=== PATIENT | male | born 1995 | race Caucasian/White ===

== ENCOUNTER 2022-11-18 13:09 | Outpatient (CLI) | payer OTHER ==
[2022-11-18 19:02] VITALS: BP 116/68
--- NOTE | 2022-11-18 19:02 | SLEEP CARE CONSULTATION ---
Information from patient questionnaire entered by Tejal Bullock. I have reviewed and concur with the information entered by Tejal Bullock. This document represents the service I personally performed and the decisions made by me, Marisela Suárez MD, [facility]. History of Present Illness Service Date and Time: 11/18/2022 1309 Reason for Visit: New patient Chief Complaint: reports: Unrefreshed sleep, Snoring, Observed pauses in breathing, Fatigue Date of Onset: 4YRS Usual bedtime: 8PM Time it takes to fall asleep: 1-2HRS Snores at night: Yes Observed to quit breathing while asleep: Yes Sleeps alone due to snoring: No Number of times waking at night: 3-6 Reasons for waking at night: reports: Snoring, Pain, Other (COUGHING) Toss, Turn, or Twitch while sleeping: Yes Recalls having dreams: Yes Usually gets out of bed at: 5AM Feels refreshed in the morning: No Morning headache: No Sleepy or fatigued during the day: Yes Ever fallen asleep while driving: Yes Takes day naps: No Dreams during day naps: Yes Prior sleep studies: No Additional HPI information: I had the pleasure of seeing Mr. Blanchard today regarding the possibility of him having a sleep disorder. As you know, he is a 27-year-old gentleman who complains of loud snore, observed apneas, unrefreshed sleep, and persistent fatigue for the past 4 years. He goes to bed around 8 pm and it takes him 1 2 hours to fall asleep. He has been told that he snores loudly and irregularly at night. He has also been observed to stop breathing in his sleep. His can still sleep in the same bed but with earplugs. He can recall waking up on the average of 3 - 6 times during the night. Most of the time he wakes up because of pain, coughing, and his own snore. There is a lot of tossing and turning in his sleep. He has somniloquy (sleep talking) but not somnambulism (sleep walking). Generally, he can recall having dreams. In the morning he usually gets up out of the bed around 5 a.m. not feeling refreshed nor rested. He usually does not have a morning headache. During the day he complains of feeling sleepy and fatigued. His score on [place] Sleepiness Scale is 12 out of 24. He has fallen asleep while driving and has gone out of the lizzie. He usually does not take naps during the day. Upon falling asleep during the day he denies having vivid dreams. He has never had sleep paralysis, experienced cataplexy but reports symptoms of restless leg syndrome. He reports having impaired concentration during the day. - Parasomnia Symptoms Ever been unable to move upon waking from sleep: No Walks in sleep: No Talks in sleep: Yes Ever acted out dreams in sleep: Yes Ever felt weak in the knees when startled or emotional: No Bothered by creepy, crawly, restless sensations in legs: Yes Problems with memory or concentration: Yes Subjective Initial [place] Sleepiness Scale score: 15 () Past Medical History Past Medical History: reports: GERD, Attention deficit Social History The patient's occupation is a AM. Patient is and lives in . Have you smoked in the past 12 months: No Alcohol use: Yes Alcohol amount and frequency: 1-2 DRINKS 2-3 TIMES A MONTH Caffeine use: No Family History Family history of sleep disordered breathing: Yes Family Hx Sleep Apnea: Father: Snoring Allergies and Home Medications Known drug allergies: No Drug allergies reviewed: Yes Home medication list reviewed: Yes Review of Systems Cardiovascular: denies: high blood pressure, palpitations, chest pain, irregular heart rate or pulse, leg or foot swelling, have to sleep sitting up, other Respiratory: reports: shortness of breath, chronic cough Gastrointestinal: reports: heartburn, other (STOMACH ULCER) Urinary: denies: incontinence, frequency, urgency, impotence, other Neurological: reports: headaches Psychiatric: reports: Attention Deficit Hyperactivity Ear/Nose/Throat: reports: dry mouth/throat, wisdom teeth removed Endocrine: denies: thyroid disease, history of goiter, sluggishness, too hot or cold, excessive thirst, increased appetite, increased urination, unexplained weakness, other Musculoskeletal: reports: joint pain, neck pain, back pain, muscle pain or cramping Immunologic: denies: sneezing, rash, itching, allergies to food or environment, other Physical Exam Vital signs obtained and entered by: TEJAL Cornejo MA Blood Pressure: 116/68 (LEFT ARM) Cuff size: regular Heart Rate: 105 O2 Saturation: 99 Height: 5 ft 10 in Weight: 201 lb 3.2 oz Body Mass Index: 28.8 BMI Classification: Overweight Neck circumference: 15.75 Mood/affect: normal HEENT: No craniofacial malformation Nostrils: patent to airflow Turbinates: normal Septum: midline Mouth and throat: narrow oropharynx Soft palate: long Hard palate: normal Uvula: normal Uvula visualization: 50% Mallampati Class II Tongue: enlarged in size with teeth avalos on lateral edges Chin and jaw: normal size and position Neck: normal w/o lymphadenopathy or thyromegaly Heart: regular rate and rhythm Lungs: clear bilaterally Extremities: no edema or clubbing Neurologic: intact Impression and Plan IMPRESSION: 1. Obstructive Sleep Apnea-Hypopnea Syndrome, as suggested by history of loud and irregular snoring, observed cessation of breath while asleep, frequent awakenings during the night, unrefreshed sleep, cognitive impairment, and daytime hypersomnolence. Narrow oropharynx and obesity are common predisposing factors for obstructive sleep apnea-hypopnea syndrome. I recommend proceeding to polysomnography to confirm the diagnosis and to assess severity. If he has significant sleep disordered breathing, a manual CPAP titration study will also be performed to find the optimal treatment pressure. I informed the patient of what the sleep studies involve and after some discussion, he agreed to proceed. Plan: 1. Schedule polysomnography + manual CPAP titration study and return in 1 to 2 weeks after the study to discuss result and initiate therapy. 2. Avoid long distance driving or when feeling sleepy. 3. Avoid alcohol, sedative and muscle relaxant around bedtime. 4. Attempt to lose weight. Follow up with Sleep Care in: 1-2 months Plan: In-laboratory PSG Visit Type: In Office Time Spent with Patient (minutes): 15 Provider Statement: I spent 100% of the Face to Face Visit with the patient with greater than 50% spent counseling the patient and coordination of care.
== END 2022-11-18 13:10 | disposition home or self-care (01) ==
LOC: SC 13:09
PROVIDERS: ATTEND Internal Medicine Pulmonary Disease
DX: R06.83 Snoring (principal); G47.8 Other sleep disorders; R06.81 Apnea, not elsewhere classified; R41.89 Other symptoms and signs involving cognitive functions and awareness; G47.10 Hypersomnia, unspecified; E66.3 Overweight; Z68.28 Body mass index [BMI] 28.0-28.9, adult
CPT/HCPCS: 99202; 99212

== ENCOUNTER 2022-12-05 19:17 | Outpatient (CLI) | payer OTHER | END 2022-12-05 19:18 | disposition home or self-care (01) | LOC: SC 19:17 | PROVIDERS: ATTEND Internal Medicine Pulmonary Disease | DX: G47.61 Periodic limb movement disorder (principal) | CPT/HCPCS: 95810 ==

== ENCOUNTER 2022-12-10 14:53 | Outpatient (CLI) | payer OTHER ==
[2022-12-10 15:43] VITALS: BP 122/78
--- NOTE | 2022-12-10 15:43 | SLEEP CARE CONSULTATION ---
Information from patient questionnaire entered by Tejal Bullock. I have reviewed and concur with the information entered by Tejal Bullock. This document represents the service I personally performed and the decisions made by , Cheryl Stevenson ARNP. History of Present Illness Service Date and Time: 12/10/2022 145 Initial [place] Sleepiness Scale score: 15 () Current [place] Sleepiness Scale score: 12 (12/10/22) Additional HPI information: INESSA ESCALANTE returns for follow up and results of the recently performed polysomnography. The patient was informed of the following findings: No significant sleep disordered breathing with an average AHI of 3.9 and sherry oxygen saturation of 91%. Supine AHI was elevated at 30.4. I explained the pathophysiology behind obstructive sleep apnea. Patient does not have sleep apnea and was advised how weight gain could increase the risk of developing sleep apnea in the future. I strongly encouraged the patient to lose weight. Patient does not have significant sleep disordered breathing but has elevated AHI in supine position so advised positional therapy. Methods to achieve positional management therapy were discussed; such as, positioning with pillows, wearing a T-shirt with tennis balls sewn into the back, or commercially available products. Patient counseled not drink alcohol less than 4 hours before bedtime as it can increase snoring and apnea. Patient was cautioned about risks of drowsy driving until sleepiness symptoms resolve. Sleep Study - Results Type of Sleep Study: Polysomnography (COMPLETED 12/05/22) Prior sleep studies: No Polysomnography/Home Sleep Study results: IMPRESSION: The quality of the study is good. The patient had slightly reduced sleep efficiency due to prolonged awakening in the middle of the night. The sleep architecture was relatively normal considering the first-night effect. Respiratory monitoring showed no significant sleep disordered breathing (AHI = 3.9) or hypoxia (sherry oxygen saturation of 91%). The few respiratory events occurred almost exclusively during the very limited supine sleep (supine AHI = 30.4; non-supine = 3.28). No audible snore. There was mild periodic leg movement of sleep not associated with sleep fragmentation. Cardiac rhythm was normal sinus rhythm without significant arrhythmia. No abnormal behavior (parasomnia) observed during the night. Allergies and Home Medications Known drug allergies: No Drug allergies reviewed: Yes Home medication list reviewed: Yes (no changes) Allergy and home medication list: Allergies No Known Drug Allergies Allergy (Verified 12/10/22 10:48) Review of Systems Review of systems same as previous: Yes (no changes) Physical Exam Vital signs obtained and entered by: TEJAL Cornejo MA Blood Pressure: 122/78 (LEFT ARM) Cuff size: regular Heart Rate: 85 O2 Saturation: 99 Height: 5 ft 10 in Weight: 198 lb Body Mass Index: 28.4 BMI Classification: Overweight Impression and Plan 1. Periodic limb movement, [mild], that did not fragment patients sleep. Periodic limb movement of sleep (PLMS) is characterized by episodes of repetitive limb movements that occur during sleep and usually involve the lower limbs. The etiology is unknown. Caffeine can aggravate PLMS and should be avoided. Sleep hygiene methods can also improve sleep as well as lifestyle changes such as regular exercise. Patient was advised that no treatment is needed at this time. If symptoms increase, then further evaluation is indicated. Since patients has elevated respiratory events in supine position, patient advised to avoid sleeping supine to control apneas and agreed with plan. He is also advised to lose weight as this will reduce snoring and apnea. An oral appliance can also be used for snoring but often is not covered by insurance. He voiced understanding. * Avoid supine sleep * Attempt to lose weight * Avoid alcohol consumption near bedtime * The patient is cautioned about driving until sleepiness is completely resolved. * Return as needed for follow up. Counseling Topics: Weight loss health impact Visit Type: In Office Time Spent with Patient (minutes): 15 Provider Statement: I spent 100% of the Face to Face Visit with the patient with greater than 50% spent counseling the patient and coordination of care.
== END 2022-12-10 14:54 | disposition home or self-care (01) ==
LOC: SC 14:53
PROVIDERS: ATTEND Nurse Practitioner Family
DX: G47.61 Periodic limb movement disorder (principal); E66.3 Overweight; Z68.28 Body mass index [BMI] 28.0-28.9, adult
CPT/HCPCS: 99212